=== PATIENT | male | born 1985 | race Caucasian/White ===

== ENCOUNTER 2016-08-13 22:23 | Emergency (ER) | payer BC ==
[~2016-08-13] VITALS: Ht 180.3 cm; Wt 88.5 kg
[2016-08-13 22:30] VITALS: BP_SYST 147
--- NOTE | 2016-08-13 23:10 | NUR ---
Sara cohen in [facility] - 08/14/16 at 0143 by [email or web address] MD Lee at bedside examining pt
--- NOTE | 2016-08-13 23:15 | NUR ---
Sara cohen in [facility] - 08/14/16 at 0141 by [email or web address] MD Lee at bedside examining pt
--- NOTE | 2016-08-13 23:18 | NUR ---
Patient to ER bed 3 to gown for evaluation. Side rails up. Report given to REED OATES.
--- NOTE | 2016-08-13 23:20 | NUR ---
Sara cohen in [facility] - 08/13/16 at 2330 by [email or web address] Placed in room 3 . Placed on teletypesetter monitor, blood pressure machine and pulse oximeter. To gown for exam. Side rails up.
--- NOTE | 2016-08-13 23:20 | NUR ---
Pt presents to ED with c/o left anterior sharp chestpain 2/10, non-radiating. Pt stated he had 10/10 chest pain last night, went to sleep and the chestpain subsided, chestpain ccame back tonight but at lower severity. A&Ox4, ambulatory, non-diaphoretic, denies SOB , denies N/V/D. Skin intact. Will continue to monitor
--- NOTE | 2016-08-13 23:20 | NUR ---
MD Lee at bedside examining pt
[2016-08-13 23:30] LABS: BASOPHILS # (AUTO) 0.1 K/uL (0.0-0.2); BASOPHILS % (AUTO) 0.8 % (0.0-2.0); EOSINOPHILS # (AUTO) 0.4 K/uL (0.0-0.4); EOSINOPHILS % (AUTO) 5.1 % (0.0-4.0); HEMATOCRIT 47.3 % (36-54); HEMOGLOBIN 15.8 g/dL (14.0-18.0); LYMPHOCYTES # (AUTO) 2.2 K/uL (1.0-5.5); LYMPHOCYTES % (AUTO) 25.9 % (20.5-51.5); MEAN CORPUSCULAR HEMOGLOBIN 29 pg (27-31); MEAN CORPUSCULAR HGB CONC 33 % (32-36); MEAN CORPUSCULAR VOLUME 87 fL (79.0-98.0); MONOCYTES # (AUTO) 0.8 K/uL (0.0-1.0); MONOCYTES % (AUTO) 9.4 % (1.7-9.3); NEUTROPHILS # (AUTO) 4.8 K/uL (1.8-7.7); NEUTROPHILS % (AUTO) 58.8 % (40.0-70.0); PLATELET COUNT (AUTO) 209 K/uL (130-430); RED BLOOD CELL COUNT(AUTO) 5.44 MIL/uL (4.2-6.2); RED CELL DISTRIBUTION WIDTH 11.9 % (9.0-15.0); WHITE BLOOD COUNT (AUTO) 8.3 K/uL (4.8-10.8)
[2016-08-13 23:44] LABS: CALCIUM 9.2 mg/dL (8.4-11.0); CREATININE 1.14 mg/dL (0.55-1.30); POTASSIUM 3.7 mmol/L (3.5-5.1)
[2016-08-13 23:49] LABS: ALBUMIN 4.5 g/dL (3.4-4.8); TOTAL BILIRUBIN 1.1 mg/dL (0.0-1.0)
[2016-08-14 00:57] VITALS: BP_SYST 140
--- NOTE | 2016-08-14 00:57 | NUR ---
Patient given written and verbal discharge instructions and verbalizes understanding. ER MD Lee discussed with patient the results and treatment provided. Patient in stable condition. ID arm band removed. No rx given. Patient educated on pain management and to follow up with PMD. Pain Scale 0/10 Opportunity for questions provided and answered.
== END 2016-08-14 00:57 | disposition home or self-care (01) ==
LOC: SED 22:23
DX: I10 Essential (primary) hypertension (principal); F17.210 Nicotine dependence, cigarettes, uncomplicated; R07.89 Other chest pain; Z71.6 Tobacco abuse counseling
CPT/HCPCS: 36415; 71010; 80053; 82550-TC; 84484; 85025; 93005; 99285